=== PATIENT | male | born 1970 | race African-American/Black ===

== ENCOUNTER 2021-01-15 16:53 | Emergency (ER) | payer MEDICAID ==
[~2021-01-15] VITALS: Ht 182.9 cm; Wt 91.0 kg
[2021-01-15] MEDS ORDERED: CEFTRIAXONE 2 G PREMIX 50 ML IV ONE (19:00)
[2021-01-15] MEDS ORDERED: AZITHROMYCIN 500 MG TABLET PO ONE (19:00)
[2021-01-15 19:21] LABS: CHLORIDE 102 mEq/L (98-107)
[2021-01-15 19:24] LABS: BASOPHILS % 0.3 % (0.0-2.0); EOSINOPHILS % 0.4 % (0.0-5.0); HEMATOCRIT. 50.4 % (42.0-52.0); HEMOGLOBIN. 16.6 g/dL (14.0-18.0); MEAN CORPUSCULAR HEMOGLOBIN 28.9 pg (28.0-32.0); MEAN CORPUSCULAR VOLUME 87.5 fL (80.0-94.0); MEAN PLATELET VOLUME 9.6 fl (7.4-10.4); MONOCYTES % 9.2 % (2.0-8.0); NEUTROPHILS % 74.1 % (40.0-76.0); PLATELET 232 x1000/uL (130-400); RED BLOOD CELL COUNT 5.76 mill/uL (4.7-6.1); RED CELL DISTRIBUTION WIDTH 14.3 % (11.6-14.6)
[2021-01-15 19:30] VITALS: BP 128/84
== END 2021-01-15 19:46 | disposition short-term general hospital (02) ==
LOC: ER 16:53
DX: R06.02 Shortness of breath (principal); J18.9 Pneumonia, unspecified organism
CPT/HCPCS: 36415; 71045; 80053; 83880; 84484; 85025; 93005; 96365; 99285; J0696

== ENCOUNTER 2021-03-09 09:54 | Emergency (ER) | payer MEDICAID, OTHER ==
[~2021-03-09] VITALS: Ht 182.9 cm; Wt 91.0 kg
[2021-03-09] MEDS ORDERED: SODIUM CHLORIDE 0.9% 1000ML BAG (SEPSIS BOLUS) IV ONE (10:15)
[2021-03-09 10:30] LABS: HEMATOCRIT. 54.7 % (42.0-52.0); HEMOGLOBIN. 17.9 g/dL (14.0-18.0); MEAN CORPUSCULAR HEMOGLOBIN 28.2 pg (28.0-32.0); MEAN CORPUSCULAR VOLUME 86.3 fL (80.0-94.0); MEAN PLATELET VOLUME 8.6 fl (7.4-10.4); PLATELET 137 x1000/uL (130-400); RED BLOOD CELL COUNT 6.34 mill/uL (4.7-6.1); RED CELL DISTRIBUTION WIDTH 14.8 % (11.6-14.6)
[2021-03-09 10:37] LABS: CHLORIDE 107 mEq/L (98-107)
[2021-03-09 10:39] LABS: INR 1.6; PROTHROMBIN TIME 16.5 sec (9.6-11.0)
[2021-03-09 10:43] LABS: ETHANOL BLOOD < 10 mg/dL
[2021-03-09 10:46] LABS: CREATINE KINASE 193 IU/L (39-308)
[2021-03-09] MEDS ORDERED: ALBUTEROL (0.083%) 2.5MG/3ML NEB HHN STA (11:20)
[2021-03-09 11:26] LABS: PLATELET ESTIMATE NORMAL
[2021-03-09 11:27] LABS: CLARITY URINE CLEAR (CLEAR); COLOR URINE YELLOW (YELLOW); KETONES URINE 1+ (NEGATIVE); LEUKOCYTE ESTERASE URINE NEGATIVE (NEGATIVE); NITRITE URINE NEGATIVE (NEGATIVE); OCCULT BLOOD URINE TRACE (NEGATIVE); PH URINE 6.5 (4.5-8.0); PROTEIN URINE NEGATIVE (NEGATIVE); SPECIFIC GRAVITY URINE 1.007 (1.005-1.030); UROBILINOGEN URINE 0.2 E.U./dL (0.2-1.0)
[2021-03-09] MEDS ORDERED: AMPICILLIN SOD/SULBACTAM NA 3 G in SODIUM CHLORIDE 0.9% 100 ML IV SCH (11:30)
[2021-03-09] MEDS ORDERED: VANCOMYCIN 1 G PREMIX 200 ML IV SCH (11:30)
[2021-03-09 11:37] LABS: *BARBITURATES SCREEN URINE NEGATIVE (NEGATIVE); *COCAINE SCREEN URINE NEGATIVE (NEGATIVE); CANNABINOID URINE SCREEN PRESUMTIVE POSITIVE (NEGATIVE); METHADONE URINE SCREEN NEGATIVE (NEGATIVE); OPIATES URINE SCREEN NEGATIVE (NEGATIVE); PHENCYCLIDINE URINE SCREEN NEGATIVE (NEGATIVE)
[2021-03-09 11:38] LABS: *AMPHETAMINES SCREEN URINE PRESUMTIVE POSITIVE (NEGATIVE); *BENZODIAZEPINES SCREEN URINE NEGATIVE (NEGATIVE)
[2021-03-09 14:48] LABS: BG BASE EXCESS -4.1 mmol/L (-2.0-2.0); BG CARBOXYHEMOGLOBIN 0.6 % (0.5-1.5); BG DEOXYHEMOGLOBIN 1.1 % (0.0-5.0); BG FRACTION INSPIRED OXYGEN 99.8; BG HCO3 ACT 21.5 mmol/L (22.0-26.0); BG METHEMOGLOBIN 0.5 % (0.0-1.5); BG OXYGEN SATURATION 98.9 % (92.0-98.5); BG OXYHEMOGLOBIN 97.8 % (94.0-97.0); BG PCO2 41.2 mmHg (35.0-45.0); BG PH 7.335 (7.350-7.450); BG SAMPLE SITE RIGHT RADIAL; BG TOTAL HEMOGLOBIN 16.8 g/dL (12.0-18.0); BG VENT MODE MASK - NRB
[2021-03-09 17:41] VITALS: BP 154/94
[2021-03-09] MEDS ORDERED: MIDAZOLAM HCL 2 MG/2 ML VIAL IV ONE (17:45)
== END 2021-03-09 18:18 | disposition short-term general hospital (02) ==
LOC: ER 09:54 → CANBEDREQ 19:35
DX: A41.9 Sepsis, unspecified organism (principal); R65.20 Severe sepsis without septic shock; J69.0 Pneumonitis due to inhalation of food and vomit; G93.41 Metabolic encephalopathy; F15.10 Other stimulant abuse, uncomplicated; F12.10 Cannabis abuse, uncomplicated
CPT/HCPCS: 36415; 36600; 70450; 71045; 72125; 80053; 80305; 80307; 80320; 80329; 81003; 82140; 82375; 82550; 82805; 82962; 83605; 83615; 83690; 84145; 84484; 85025; 85384; 85610; 86140; 86850; 86900; 86901; 87040; 87086; 87426; 93005; 94640; 96361; 96365; 96367; 96375; 99291; J0295; J2250; J3370; J7030; J7050; Z7610; G0480

== ENCOUNTER 2021-03-31 08:33 | Emergency (ER) | payer MEDICAID, OTHER ==
[~2021-03-31] VITALS: Ht 182.9 cm; Wt 87.0 kg
[2021-03-31 09:55] LABS: BASOPHILS % 0.4 % (0.0-2.0); EOSINOPHILS % 0.2 % (0.0-5.0); HEMATOCRIT. 44.1 % (42.0-52.0); HEMOGLOBIN. 14.7 g/dL (14.0-18.0); LYMPHOCYTES % 7.4 % (20.0-50.0); MEAN CORPUSCULAR HEMOGLOBIN 28.5 pg (28.0-32.0); MEAN CORPUSCULAR VOLUME 85.7 fL (80.0-94.0); MEAN PLATELET VOLUME 8.2 fl (7.4-10.4); MONOCYTES % 6.2 % (2.0-8.0); NEUTROPHILS % 85.8 % (40.0-76.0); PLATELET 327 x1000/uL (130-400); RED BLOOD CELL COUNT 5.14 mill/uL (4.7-6.1); RED CELL DISTRIBUTION WIDTH 15.4 % (11.6-14.6)
[2021-03-31 10:17] LABS: CHLORIDE 100 mEq/L (98-107)
[2021-03-31 13:28] LABS: *AMPHETAMINES SCREEN URINE NEGATIVE (NEGATIVE); *BARBITURATES SCREEN URINE NEGATIVE (NEGATIVE); *BENZODIAZEPINES SCREEN URINE NEGATIVE (NEGATIVE); *COCAINE SCREEN URINE NEGATIVE (NEGATIVE)
[2021-03-31 13:29] LABS: CANNABINOID URINE SCREEN PRESUMTIVE POSITIVE (NEGATIVE); METHADONE URINE SCREEN NEGATIVE (NEGATIVE); OPIATES URINE SCREEN NEGATIVE (NEGATIVE); PHENCYCLIDINE URINE SCREEN NEGATIVE (NEGATIVE)
[2021-03-31] MEDS ORDERED: CEFTRIAXONE 1 G PREMIX 50 ML IV ONE (13:30)
[2021-03-31] MEDS ORDERED: ACETAMINOPHEN WITH CODEINE 300/30MG TABLET PO ONE (14:30)
[2021-03-31 19:19] VITALS: BP 146/110
== END 2021-03-31 19:57 | disposition short-term general hospital (02) ==
LOC: ER 08:33 → CANBEDREQ 21:43
DX: J18.9 Pneumonia, unspecified organism (principal); F17.200 Nicotine dependence, unspecified, uncomplicated; Z20.822 Contact with and (suspected) exposure to COVID-19; Z98.890 Other specified postprocedural states; Z86.59 Personal history of other mental and behavioral disorders
CPT/HCPCS: 36415; 71045; 71250; 80053; 80305; 83605; 83880; 84484; 85025; 87040; 93005; 96365; 99285; C9803; J0696; U0003; U0005

== ENCOUNTER 2021-06-25 15:10 | Inpatient (IN) | payer MEDICAID, OTHER ==
[~2021-06-25] VITALS: Ht 182.9 cm; Wt 91.7 kg
[2021-06-25] MEDS ORDERED: LORAZEPAM 2MG/ML CPJ IV STA (15:25)
[2021-06-25] MEDS ORDERED: SODIUM CHLORIDE 0.9% 1,000 ML IV ONE ×2 (15:30→19:30)
[2021-06-25 16:10] LABS: BASOPHILS % 0.4 % (0.0-2.0); EOSINOPHILS % 0.2 % (0.0-5.0); HEMATOCRIT. 57.4 % (42.0-52.0); HEMOGLOBIN. 18.1 g/dL (14.0-18.0); LYMPHOCYTES % 8.4 % (20.0-50.0); MEAN CORPUSCULAR HEMOGLOBIN 26.8 pg (28.0-32.0); MEAN CORPUSCULAR VOLUME 84.8 fL (80.0-94.0); MEAN PLATELET VOLUME 8.6 fl (7.4-10.4); MONOCYTES % 4.5 % (2.0-8.0); NEUTROPHILS % 86.5 % (40.0-76.0); PLATELET 197 x1000/uL (130-400); RED BLOOD CELL COUNT 6.77 mill/uL (4.7-6.1); RED CELL DISTRIBUTION WIDTH 16.5 % (11.6-14.6)
[2021-06-25 16:16] LABS: CLARITY URINE CLEAR (CLEAR); COLOR URINE DARK YELLOW (YELLOW); KETONES URINE 3+ (NEGATIVE); LEUKOCYTE ESTERASE URINE NEGATIVE (NEGATIVE); NITRITE URINE NEGATIVE (NEGATIVE); OCCULT BLOOD URINE TRACE (NEGATIVE); PH URINE 5.5 (4.5-8.0); PROTEIN URINE 2+ (NEGATIVE); SPECIFIC GRAVITY URINE 1.026 (1.005-1.030)
[2021-06-25 16:26] LABS: CHLORIDE 100 mEq/L (98-107)
[2021-06-25 16:30] LABS: ETHANOL BLOOD < 10 mg/dL
[2021-06-25 16:42] LABS: *AMPHETAMINES SCREEN URINE PRESUMTIVE POSITIVE (NEGATIVE); *BARBITURATES SCREEN URINE NEGATIVE (NEGATIVE)
[2021-06-25 16:43] LABS: *BENZODIAZEPINES SCREEN URINE NEGATIVE (NEGATIVE); *COCAINE SCREEN URINE NEGATIVE (NEGATIVE); CANNABINOID URINE SCREEN PRESUMTIVE POSITIVE (NEGATIVE); METHADONE URINE SCREEN NEGATIVE (NEGATIVE); OPIATES URINE SCREEN NEGATIVE (NEGATIVE); PHENCYCLIDINE URINE SCREEN NEGATIVE (NEGATIVE)
[2021-06-25] MEDS ORDERED: ACTIVATED CHARCOAL 50 G/240 ML TUBE PO ONE (21:15)
[2021-06-26] MEDS: ARIPIPRAZOLE 5MG TABLET PO SCH (14:14)
[2021-06-26] MEDS: LORAZEPAM 2MG/ML CPJ IV PRN (20:41)
[2021-06-27] MEDS: LORAZEPAM 2MG/ML CPJ IV PRN ×3 (05:00→12:56)
[2021-06-27 08:00] VITALS: BP 154/102
[2021-06-27] MEDS: ONDANSETRON HCL 4MG/2ML INJ IV PRN (08:26)
[2021-06-27 09:00] VITALS: BP 154/102
[2021-06-27] MEDS: ARIPIPRAZOLE 5MG TABLET PO SCH (09:15)
[2021-06-27] MEDS: AMLODIPINE 10MG TABLET PO SCH (09:16)
[2021-06-27 11:43] VITALS: BP 154/102
[2021-06-27 12:00] VITALS: BP 148/112
[2021-06-27] MEDS ORDERED: ARIP300S PO (12:04)
[2021-06-27] MEDS ORDERED: GABA-532 MT (12:04)
[2021-06-27] MEDS ORDERED: TRAZ-252 MT (12:04)
[2021-06-27 16:00] VITALS: BP 149/110
[2021-06-27] MEDS ORDERED: HYDRALAZINE HCL 50MG TABLET PO SCH (17:30)
[2021-06-27] MEDS ORDERED: HYDRALAZINE HCL 50MG TABLET PO NR (17:45)
[2021-06-27 17:47] LABS: BASOPHILS % 0.3 % (0.0-2.0); EOSINOPHILS % 1.4 % (0.0-5.0); HEMATOCRIT. 50.9 % (42.0-52.0); HEMOGLOBIN. 16.4 g/dL (14.0-18.0); LYMPHOCYTES % 16.3 % (20.0-50.0); MEAN CORPUSCULAR HEMOGLOBIN 27.4 pg (28.0-32.0); MEAN PLATELET VOLUME 8.9 fl (7.4-10.4); MONOCYTES % 8.3 % (2.0-8.0); NEUTROPHILS % 73.7 % (40.0-76.0); PLATELET 146 x1000/uL (130-400); RED BLOOD CELL COUNT 5.98 mill/uL (4.7-6.1); RED CELL DISTRIBUTION WIDTH 16.3 % (11.6-14.6)
[2021-06-27 18:05] LABS: CHLORIDE 101 mEq/L (98-107)
[2021-06-27 20:00] VITALS: BP 144/102
[2021-06-27] MEDS: HYDRALAZINE HCL 50MG TABLET PO SCH (21:25)
[2021-06-28] VITALS: BP 148/103
[2021-06-28 04:00] VITALS: BP 137/107
[2021-06-28] MEDS: HYDRALAZINE HCL 50MG TABLET PO SCH ×3 (05:13→21:22)
[2021-06-28 08:00] VITALS: BP 141/105
[2021-06-28] MEDS: ARIPIPRAZOLE 5MG TABLET PO SCH (08:34)
[2021-06-28] MEDS: AMLODIPINE 10MG TABLET PO SCH (08:34)
[2021-06-28] MEDS: ACETAMINOPHEN 325MG TABLET PO PRN (08:39)
[2021-06-28] MEDS: ONDANSETRON HCL 4MG/2ML INJ IV PRN (09:44)
[2021-06-28 12:00] VITALS: BP 129/100
[2021-06-28 16:00] VITALS: BP 127/81
[2021-06-28 20:00] VITALS: BP 165/103
[2021-06-28] MEDS: LORAZEPAM 1MG TABLET PO PRN (21:22)
[2021-06-28] MEDS ORDERED: ARIPIPRAZOLE 5MG TABLET PO SCH (21:30)
[2021-06-29] VITALS: BP 144/102
[2021-06-29 04:00] VITALS: BP 146/86
[2021-06-29] MEDS: HYDRALAZINE HCL 50MG TABLET PO SCH ×3 (05:31→21:15)
[2021-06-29 08:00] VITALS: BP 143/90
[2021-06-29] MEDS: AMLODIPINE 10MG TABLET PO SCH (09:04)
[2021-06-29 12:00] VITALS: BP 140/88
[2021-06-29 16:00] VITALS: BP 132/90
[2021-06-29] MEDS: OLANZAPINE 5MG TABLET PO SCH (18:47)
[2021-06-29 19:47] VITALS: BP 147/83
[2021-06-29] MEDS: DIVALPROEX SODIUM 500MG DR TABLET PO SCH (21:15)
[2021-06-30 04:00] VITALS: BP 136/98
[2021-06-30 04:17] VITALS: BP 151/88
[2021-06-30] MEDS: HYDRALAZINE HCL 50MG TABLET PO SCH ×2 (05:22→12:17)
[2021-06-30 08:05] VITALS: BP 164/96
[2021-06-30] MEDS: DIVALPROEX SODIUM 500MG DR TABLET PO SCH ×2 (08:38→21:07)
[2021-06-30] MEDS: OLANZAPINE 5MG TABLET PO SCH ×2 (08:38→16:47)
[2021-06-30] MEDS: AMLODIPINE 10MG TABLET PO SCH (08:38)
[2021-06-30 11:57] VITALS: BP 160/116
[2021-06-30] MEDS: ACETAMINOPHEN 325MG TABLET PO PRN (12:18)
[2021-06-30] MEDS: FLUOXETINE HCL 10 MG CAPSULE PO SCH (14:06)
[2021-06-30] MEDS: ONDANSETRON HCL 4MG/2ML INJ IV PRN (14:50)
[2021-06-30 15:44] VITALS: BP 146/96
[2021-06-30] MEDS: CLONIDINE 0.1MG TABLET PO PRN (16:47)
[2021-06-30 20:00] VITALS: BP 169/102
[2021-06-30] MEDS: LORAZEPAM 1MG TABLET PO PRN (21:07)
[2021-06-30] MEDS: HYDRALAZINE HCL 100MG TABLET PO SCH (21:08)
[2021-07-01] VITALS: BP 134/73
[2021-07-01 04:00] VITALS: BP 131/77
[2021-07-01] MEDS: HYDRALAZINE HCL 100MG TABLET PO SCH ×3 (06:08→21:03)
[2021-07-01 07:31] VITALS: BP 140/83
[2021-07-01] MEDS: FLUOXETINE HCL 10 MG CAPSULE PO SCH (10:08)
[2021-07-01] MEDS: OLANZAPINE 5MG TABLET PO SCH ×2 (10:08→16:46)
[2021-07-01] MEDS: AMLODIPINE 10MG TABLET PO SCH (10:08)
[2021-07-01] MEDS: DIVALPROEX SODIUM 500MG DR TABLET PO SCH ×2 (10:08→21:02)
[2021-07-01 12:00] VITALS: BP 131/86
[2021-07-01 15:21] VITALS: BP 126/90
[2021-07-01 20:01] VITALS: BP 132/77
[2021-07-01] MEDS: LORAZEPAM 1MG TABLET PO PRN (21:03)
[2021-07-01] MEDS: ACETAMINOPHEN 325MG TABLET PO PRN (21:03)
[2021-07-02 00:01] VITALS: BP 130/82
[2021-07-02 01:45] LABS: BASOPHILS % 0.4 % (0.0-2.0); EOSINOPHILS % 1.8 % (0.0-5.0); HEMATOCRIT. 45.6 % (42.0-52.0); HEMOGLOBIN. 14.4 g/dL (14.0-18.0); MEAN CORPUSCULAR HEMOGLOBIN 26.9 pg (28.0-32.0); MEAN CORPUSCULAR VOLUME 85.1 fL (80.0-94.0); MEAN PLATELET VOLUME 8.4 fl (7.4-10.4); MONOCYTES % 9.6 % (2.0-8.0); NEUTROPHILS % 64.2 % (40.0-76.0); PLATELET 149 x1000/uL (130-400); RED BLOOD CELL COUNT 5.36 mill/uL (4.7-6.1); RED CELL DISTRIBUTION WIDTH 15.7 % (11.6-14.6)
[2021-07-02 01:50] LABS: CHLORIDE 103 mEq/L (98-107)
[2021-07-02 04:00] VITALS: BP 129/93
[2021-07-02] MEDS: HYDRALAZINE HCL 100MG TABLET PO SCH ×3 (05:56→22:03)
[2021-07-02] MEDS: ONDANSETRON HCL 4MG/2ML INJ IV PRN (09:36)
[2021-07-02] MEDS: DIVALPROEX SODIUM 500MG DR TABLET PO SCH ×2 (11:05→22:03)
[2021-07-02] MEDS: FLUOXETINE HCL 10 MG CAPSULE PO SCH (11:05)
[2021-07-02] MEDS: OLANZAPINE 5MG TABLET PO SCH ×2 (11:05→17:00)
[2021-07-02] MEDS: AMLODIPINE 10MG TABLET PO SCH (11:06)
[2021-07-02 12:00] VITALS: BP 145/95
[2021-07-02] MEDS: ACETAMINOPHEN 325MG TABLET PO PRN (12:32)
[2021-07-02 16:00] VITALS: BP 154/100
[2021-07-02] MEDS: CLONIDINE 0.1MG TABLET PO PRN (17:16)
[2021-07-02 20:00] VITALS: BP 130/97
[2021-07-02] MEDS ORDERED: CEFTRIAXONE 1 G PREMIX 50 ML IV SCH (20:00)
[2021-07-02] MEDS: LORAZEPAM 1MG TABLET PO PRN (22:03)
[2021-07-02] MEDS: CEFTRIAXONE 1,000 MG in DEXTROSE 5% WATER 50 ML IV SCH (22:03)
[2021-07-03] VITALS (7 sets, daily range): BP systolic 125–148; BP diastolic 70–98
[2021-07-03] MEDS: ACETAMINOPHEN 325MG TABLET PO PRN ×2 (00:07→13:07)
[2021-07-03] MEDS: HYDRALAZINE HCL 100MG TABLET PO SCH ×3 (06:26→21:18)
[2021-07-03 07:17] LABS: BASOPHILS % 0.4 % (0.0-2.0); EOSINOPHILS % 1.5 % (0.0-5.0); HEMATOCRIT. 45.2 % (42.0-52.0); HEMOGLOBIN. 14.9 g/dL (14.0-18.0); MEAN CORPUSCULAR HEMOGLOBIN 28.1 pg (28.0-32.0); MEAN CORPUSCULAR VOLUME 84.8 fL (80.0-94.0); MEAN PLATELET VOLUME 8.6 fl (7.4-10.4); MONOCYTES % 11.6 % (2.0-8.0); NEUTROPHILS % 69.5 % (40.0-76.0); PLATELET 149 x1000/uL (130-400); RED BLOOD CELL COUNT 5.32 mill/uL (4.7-6.1); RED CELL DISTRIBUTION WIDTH 15.2 % (11.6-14.6)
[2021-07-03] MEDS: OLANZAPINE 5MG TABLET PO SCH ×2 (09:08→19:50)
[2021-07-03] MEDS: AMLODIPINE 10MG TABLET PO SCH ×2 (09:08→13:54)
[2021-07-03] MEDS: FLUOXETINE HCL 10 MG CAPSULE PO SCH (09:08)
[2021-07-03] MEDS: DIVALPROEX SODIUM 500MG DR TABLET PO SCH ×2 (09:08→21:00)
[2021-07-03] MEDS: CEFTRIAXONE 1,000 MG in DEXTROSE 5% WATER 50 ML IV SCH (21:18)
[2021-07-03] MEDS: ONDANSETRON HCL 4MG/2ML INJ IV PRN (21:39)
[2021-07-04 04:00] VITALS: BP 138/85
[2021-07-04] MEDS: HYDRALAZINE HCL 100MG TABLET PO SCH ×3 (06:07→20:15)
[2021-07-04 07:50] VITALS: BP 130/76
[2021-07-04] MEDS: DIVALPROEX SODIUM 500MG DR TABLET PO SCH ×2 (09:18→20:14)
[2021-07-04] MEDS: OLANZAPINE 5MG TABLET PO SCH (09:18)
[2021-07-04] MEDS: FLUOXETINE HCL 10 MG CAPSULE PO SCH (09:18)
[2021-07-04] MEDS: AMLODIPINE 10MG TABLET PO SCH (09:18)
[2021-07-04 12:00] VITALS: BP 131/95
[2021-07-04 16:02] VITALS: BP 138/84
[2021-07-04] MEDS: ACETAMINOPHEN 325MG TABLET PO PRN (18:02)
[2021-07-04] MEDS: ONDANSETRON HCL 4MG/2ML INJ IV PRN (18:40)
[2021-07-04 20:00] VITALS: BP 134/91
[2021-07-04] MEDS: OLANZAPINE 2.5MG TABLET PO SCH (20:14)
[2021-07-04] MEDS: CEFTRIAXONE 1,000 MG in DEXTROSE 5% WATER 50 ML IV SCH (20:14)
[2021-07-05] VITALS: BP 131/82
[2021-07-05 04:00] VITALS: BP 120/79
[2021-07-05] MEDS: HYDRALAZINE HCL 100MG TABLET PO SCH ×2 (05:30→13:44)
[2021-07-05 08:00] VITALS: BP 128/78
[2021-07-05] MEDS: OLANZAPINE 2.5MG TABLET PO SCH (08:46)
[2021-07-05] MEDS: FLUOXETINE HCL 10 MG CAPSULE PO SCH (08:47)
[2021-07-05] MEDS: AMLODIPINE 10MG TABLET PO SCH (08:47)
[2021-07-05] MEDS: DIVALPROEX SODIUM 500MG DR TABLET PO SCH (09:50)
[2021-07-05 12:00] VITALS: BP 131/89
[2021-07-05 15:03] VITALS: BP 131/89
[2021-07-05 16:00] VITALS: BP 122/94
== END 2021-07-05 17:24 | disposition short-term general hospital (02) | DRG 817 ==
LOC: ER 15:10 → MICUSO 06-26 06:24 → 6WST 06-27 09:07
PROVIDERS: ADMIT Internal Medicine; ATTEND Internal Medicine
DX: T42.6X2A Poisoning by other antiepileptic and sedative-hypnotic drugs, intentional self-harm, initial encounter (principal); R45.851 Suicidal ideations; F20.9 Schizophrenia, unspecified; G40.909 Epilepsy, unspecified, not intractable, without status epilepticus; F31.60 Bipolar disorder, current episode mixed, unspecified; I10 Essential (primary) hypertension; T42.0X2A Poisoning by hydantoin derivatives, intentional self-harm, initial encounter; D72.829 Elevated white blood cell count, unspecified; Z20.822 Contact with and (suspected) exposure to COVID-19; F19.10 Other psychoactive substance abuse, uncomplicated; Z60.2 Problems related to living alone; Z87.01 Personal history of pneumonia (recurrent); Y92.89 Other specified places as the place of occurrence of the external cause; Z91.51 Personal history of suicidal behavior
CPT/HCPCS: 36415; 71045; 80048; 80053; 80185; 80305; 80307; 80320; 80329; 81003; 82962; 83880; 84145; 85025; 87426; 93005; 96361; 96374; 99285; C9803; J0696; J2060; J2405; J7030; J7040; J7060; U0003; U0005; G0480

== ENCOUNTER 2022-09-25 12:52 | Emergency (ER) | payer OTHER ==
[~2022-09-25] VITALS: Ht 180.3 cm; Wt 90.0 kg
[~2022-09-25 12:52] MED LIST: ARIP300S PO; GABA-532 MT; TRAZ-252 MT
[2022-09-25 12:56] VITALS: BP 177/98
[2022-09-25] MEDS ORDERED: FAMOTIDINE 20MG TABLET PO ONE (13:00)
[2022-09-25] MEDS ORDERED: MAGNESIUM/ALUMINUM HYDROXIDE/SIMETHICONE 30ML UDC PO STA (13:00)
[2022-09-25] MEDS ORDERED: METOCLOPRAMIDE HCL 10MG TABLET PO ONE (13:00)
[2022-09-25] MEDS ORDERED: VISCOUS LIDOCAINE 2% 15 ML UDC PO STA (13:00)
[2022-09-25 15:04] LABS: BASOPHILS % 0.3 % (0.0-2.0); CHLORIDE 105 mEq/L (98-107); EOSINOPHILS % 0.1 % (0.0-5.0); HEMATOCRIT. 51.4 % (42.0-52.0); HEMOGLOBIN. 16.8 g/dL (14.0-18.0); MEAN CORPUSCULAR HEMOGLOBIN 28.4 pg (28.0-32.0); MEAN CORPUSCULAR VOLUME 86.7 fL (80.0-94.0); NEUTROPHILS % 83.6 % (40.0-76.0); PLATELET 200 x1000/uL (130-400); RED BLOOD CELL COUNT 5.92 mill/uL (4.7-6.1)
[2022-09-25] MEDS ORDERED: FAMO20TA8 MT (17:03)
[2022-09-25] MEDS ORDERED: MAG-55 MT (17:03)
== END 2022-09-25 17:38 | disposition home or self-care (01) ==
LOC: ER 12:52
DX: R10.9 Unspecified abdominal pain (principal); R11.2 Nausea with vomiting, unspecified; F31.9 Bipolar disorder, unspecified; Z87.01 Personal history of pneumonia (recurrent); F20.9 Schizophrenia, unspecified
CPT/HCPCS: 36415; 71045; 74176; 80053; 83690; 84484; 85025; 99285; J8597